=== PATIENT | female | born 1975 | race Caucasian/White ===

== ENCOUNTER → 2017-09-23 | Outpatient (CLI) | payer MEDICAID ==
[~2017-09-23] MED LIST: ALPR0.25 PO; AMOX1TAB64 PO; CYAN100072 PO; ERGO500017 PO; FLUT9.9S NS; OXYC5CAP2 PO; THYR30TA PO
== END | disposition home or self-care (01) ==
LOC: CFH 12:43
PROVIDERS: ATTEND Family Medicine
DX: Z12.31 Encounter for screening mammogram for malignant neoplasm of breast (principal)
CPT/HCPCS: 77066

== ENCOUNTER → 2017-12-05 | Outpatient (CLI) | payer MEDICAID | END | disposition home or self-care (01) | LOC: CFH 13:52 | PROVIDERS: ATTEND Family Medicine | DX: N64.4 Mastodynia (principal); N63.20 Unspecified lump in the left breast, unspecified quadrant; N63.10 Unspecified lump in the right breast, unspecified quadrant | CPT/HCPCS: 76642 ==

== ENCOUNTER 2019-04-05 11:43 | Emergency (ER) | payer MEDICAID ==
[~2019-04-05] VITALS: Ht 162.6 cm; Wt 116.0 kg
--- NOTE | 2019-04-05 12:13 | NUR ---
[employer] PI DEVELOPER: PT TO ROOM FROM LOBBY
[2019-04-05] MEDS ORDERED: ONDANSETRON ODT 4 MG PO ONE (13:00)
[2019-04-05] MEDS ORDERED: DIAZEPAM 5 MG TABLET PO ONE (13:00)
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
[2019-04-05 13:11] LABS: BASOPHILS # (AUTO) 0.03 x10^3/uL (0-0.1); BASOPHILS % (AUTO) 0 % (0-1); EOSINOPHILS # (AUTO) 0.17 x10^3/uL (0-0.4); EOSINOPHILS % (AUTO) 2 % (1-7); LYMPHOCYTES % (AUTO) 25 % (22-44); MD NO; MEAN CORPUSCULAR HEMOGLOBIN 29.4 pg (27.0-34.8); MEAN CORPUSCULAR HGB CONC 33.2 g/dL (32.4-35.8); MEAN CORPUSCULAR VOLUME 88.6 fL (80-100); MEAN PLATELET VOLUME 7.6 fL (7.4-10.4); MONOCYTES # (AUTO) 0.57 x10^3/uL (0.2-0.8); MONOCYTES % (AUTO) 6 % (2-9); NEUTROPHILS # (AUTO) 6.57 x10^3/uL (1.8-6.8); NEUTROPHILS % (AUTO) 67 % (42-75); PLATELET COUNT 245 x10^3/uL (130-400); RED BLOOD COUNT 4.83 x10^6/uL (3.82-5.3); RED CELL DISTRIBUTION WIDTH 13.3 % (9.6-15.2)
[2019-04-05] MEDS ORDERED: OXYC10TA6 PO (13:11)
[2019-04-05] MEDS ORDERED: DIAZ5TAB4 PO (13:11)
--- NOTE | 2019-04-05 13:17 | NUR ---
AMBULATORY TO ROOM BR, GAIT STEADY, NO DIZZINESS/LIGHTHEADEDNESS W/ STANDING, ACCOMPANIED BY SPOUSE.
[2019-04-05 13:20] LABS: ALANINE AMINOTRANSFERASE 26 U/L (12-78); ALBUMIN 3.2 g/dL (3.4-5.0); ANION GAP 6 mmol/L (5-15); CALCIUM 8.7 mg/dL (8.5-10.1); CHLORIDE 112 mmol/L (98-107)
[2019-04-05] MEDS ORDERED: ONDANSETRON ODT 4 MG ONE (13:23)
[2019-04-05] MEDS ORDERED: DIAZEPAM 5 MG TABLET ONE (13:23)
[2019-04-05 13:24] LABS: ALKALINE PHOSPHATASE 80 U/L (45-117); BILIRUBIN,TOTAL 0.5 mg/dL (0.2-1.0); TROPONIN I < 0.015 ng/mL (0.000-0.045)
--- NOTE | 2019-04-05 13:29 | NUR ---
PT BACK ON BED, SIDE RAIL UP X 1, CALL LIGHT W/IN REACH. ZOFRAN & VALIUM GIVEN PER EMAR. MONITORING CONTINUES (NSR)
[2019-04-05 13:31] VITALS: BP 117/57
== END 2019-04-05 14:16 | disposition home or self-care (01) ==
LOC: ED 14:03
DX: R07.9 Chest pain, unspecified (principal); R42 Dizziness and giddiness
CPT/HCPCS: 36415; 71046; 80053; 84443; 84484; 85025; 85379; 93005; 99284; Q0162

== ENCOUNTER 2019-08-19 16:58 | Emergency (ER) ==
[~2019-08-19] VITALS: Ht 162.6 cm; Wt 119.7 kg
[~2019-08-19 16:58] MED LIST changes: +CHOL5000 PO; +DIAZ5TAB4 PO; +IBUP-1223 PO; +OXYC10TA6 PO; +VITAMIN B12
--- NOTE | 2019-08-19 17:24 | NUR ---
THIS IS A 43 YO FEMALE BIB [facility] FROM HOME. PATIENT STATES "NOVEMBER 2017 I HAD A BREAST REDUCTION SURGERY, FOUND OUT A FEW MONTHS AGO I HAD AN INFECTION FROM IT, WE THOUGHT IT WAS GONNA BE BREAST CANCER OR SOMETHING. I TOOK THE ANTIBIOTICS FOR THE INFECTION. THEN IN JUNE I WAS DIAGNOSED WITH SHINGLES, AND TOOK THE TWO WEEK COURSE OF ACYCLOVIR, AND MY IMMUNE SYSTEM WAS DEPRESSED FROM IT. 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 CALL LIGHT IN REACH, DENIES FURTHER NEEDS AT THIS TIME.
[2019-08-19] MEDS ORDERED: MAALOX/HYOSCYAMINE/LIDOCAINE 45 ML BTL ONE (17:53)
[2019-08-19] MEDS ORDERED: HYDROcodone/APAP 10/325 MG TABLET ONE (17:53)
[2019-08-19] MEDS ORDERED: HYDROcodone/APAP 10/325 MG TABLET PO ONE (18:00)
[2019-08-19] MEDS ORDERED: MAALOX/HYOSCYAMINE/LIDOCAINE 45 ML BTL PO ONE (18:00)
--- NOTE | 2019-08-19 18:03 | NUR ---
PATIENT STATES "MY VISION IS BLURRY, AND IT GETS WORSE WITH THE PAIN". PATIENT MEDICATED PER EMAR, TOELRATED WELL. PATIENT IS TEARY, WORRIED ABOUT HER CONDITION,TALKED PATIENT DOWN, EXPLAINED THAT WE ARE WAITING FOR LAB RESULTS TO COME BACK.
--- NOTE | 2019-08-19 18:05 | NUR ---
PATIENT VERBALIZING SHE WANTS TO BE ADMITTED, STATES "CAN YOU CALL MY PRIMARY CARE DOCTOR AND HAVE HIM TELL YOU WHAT HE TOLD ME?"VERBALIZED TO PATIENT THAT MOST OFFICES ARE CLOSED RIGHT NOW, SO WE WILL NOT BE PLACING THAT CALL. RECOMMENDED FOLLOWING UP WITH HER PRIMARY CARE TOMORROW AND GIVE PCP INFORMATION THAT WE CONCLUDED IN [facility].
[2019-08-19 18:10] LABS: BASOPHILS # (AUTO) 0.06 x10^3/uL (0-0.1); BASOPHILS % (AUTO) 0 % (0-1); EOSINOPHILS # (AUTO) 0.03 x10^3/uL (0-0.4); EOSINOPHILS % (AUTO) 0 % (1-7); LYMPHOCYTES # (AUTO) 1.91 x10^3/uL (1-3.4); LYMPHOCYTES % (AUTO) 13 % (22-44); MD NO; MEAN CORPUSCULAR HEMOGLOBIN 30.4 pg (27.0-34.8); MEAN CORPUSCULAR HGB CONC 33.3 g/dL (32.4-35.8); MEAN CORPUSCULAR VOLUME 91.1 fL (80-100); MEAN PLATELET VOLUME 7.8 fL (7.4-10.4); MONOCYTES # (AUTO) 0.57 x10^3/uL (0.2-0.8); MONOCYTES % (AUTO) 4 % (2-9); NEUTROPHILS # (AUTO) 11.99 x10^3/uL (1.8-6.8); NEUTROPHILS % (AUTO) 82 % (42-75); PLATELET COUNT 287 x10^3/uL (130-400); RED BLOOD COUNT 4.95 x10^6/uL (3.82-5.3); RED CELL DISTRIBUTION WIDTH 13.5 % (9.6-15.2)
[2019-08-19 18:14] LABS: ALANINE AMINOTRANSFERASE 33 U/L (12-78); ALBUMIN 3.7 g/dL (3.4-5.0); ANION GAP 7 mmol/L (5-15); CALCIUM 8.9 mg/dL (8.5-10.1); CHLORIDE 109 mmol/L (98-107); CREATININE 0.82 mg/dL (0.55-1.02)
[2019-08-19 18:19] LABS: ALKALINE PHOSPHATASE 84 U/L (45-117); BILIRUBIN,TOTAL 0.5 mg/dL (0.2-1.0); TOTAL PROTEIN 7.9 g/dL (6.4-8.2); TROPONIN I < 0.015 ng/mL (0.000-0.045)
[2019-08-19] MEDS ORDERED: predni (18:39)
[2019-08-19] MEDS ORDERED: PRED20TA PO (18:39)
[2019-08-19] MEDS ORDERED: HYDR-36 PO (18:40)
--- NOTE | 2019-08-19 18:48 | NUR ---
PATIENT CALM AND COOPERATIVE, AWAITING FOR RECHECK FROM MD, DENIES NEEDS AT THIS TIME. CALL LIGHT IN REACH.
--- NOTE | 2019-08-19 19:23 | NUR ---
CARE ASSUMED FOR DC. PT DC'D HOME WITH UNDERSTANDING OF INSTRUCTIONS. PT UPSET WITH CARE. PROVIDED PT WITH CAR LUBRICATOR NUMBER TO FOLLOW UP TOMORROW.
[2019-08-19 19:24] VITALS: BP 122/60
== END 2019-08-19 19:26 | disposition home or self-care (01) ==
LOC: ED 19:10
DX: R10.13 Epigastric pain (principal); R51 Headache; D72.829 Elevated white blood cell count, unspecified; T38.0X5A Adverse effect of glucocorticoids and synthetic analogues, initial encounter; E05.90 Thyrotoxicosis, unspecified without thyrotoxic crisis or storm; E66.01 Morbid (severe) obesity due to excess calories; Z68.42 Body mass index [BMI] 45.0-49.9, adult; Z90.49 Acquired absence of other specified parts of digestive tract; Z90.710 Acquired absence of both cervix and uterus; Y92.9 Unspecified place or not applicable
CPT/HCPCS: 36415; 71045; 80053; 83880; 84484; 85025; 93005; 99284